=== PATIENT | female | born 1990 | race Caucasian/White ===

== ENCOUNTER 2019-08-28 04:34 | Emergency (ER) | payer BC, OTHER ==
[~2019-08-28] VITALS: Ht 152.4 cm; Wt 47.6 kg
[2019-08-28] MEDS ORDERED: ONDANSETRON PF 4 MG/2 ML VIAL. ONE (04:51)
[2019-08-28] MEDS ORDERED: FAMOTIDINE 20 MG/2 ML VIAL ONE (04:51)
[2019-08-28] MEDS ORDERED: KETOROLAC 15 MG/ML VIAL. ONE (04:51)
[2019-08-28] MEDS ORDERED: FAMOTIDINE 20 MG/2 ML VIAL IVP ONE (05:00)
[2019-08-28] MEDS ORDERED: IV NORMAL SALINE 1,000ML 1,000 ML IV ONE ×2 (05:00→05:30)
[2019-08-28] MEDS ORDERED: KETOROLAC 15 MG/ML VIAL. IVP ONE (05:00)
[2019-08-28] MEDS ORDERED: ONDANSETRON PF 4 MG/2 ML VIAL. IVP ONE (05:00)
[2019-08-28 05:13] LABS: BASO # 0.2 x10^3/uL (0.0-0.2); BASO % 1 % (0-3); EOS % 0 % (0-3); HEMATOCRIT 41.5 % (36.0-47.0); HEMOGLOBIN 14.1 g/dL (12.0-15.5); LYMPH # 2.8 x10^3/uL (1.0-4.8); LYMPH % 10 % (24-48); MEAN CORPUSCULAR HEMOGLOBIN 31 pg (25-35); MEAN CORPUSCULAR HGB CONC 34 g/dL (31-37); MEAN CORPUSCULAR VOLUME 92 fL (79-100); MONO # 0.8 x10^3/uL (0.0-1.1); MONO % 3 % (0-9); NEUT # 25.1 x10^3uL (1.8-7.7); NEUT % 87 % (31-73); PLATELET COUNT 279 x10^3/uL (140-400); RED BLOOD COUNT 4.51 x10^6/uL (3.50-5.40); RED CELL DISTRIBUTION WIDTH 12.7 % (11.5-14.5); WHITE BLOOD COUNT 28.9 x10^3/uL (4.0-11.0)
[2019-08-28 05:19] LABS: CREATININE 0.7 mg/dL (0.6-1.0); GFR 98.9; POTASSIUM 3.4 mmol/L (3.5-5.1)
[2019-08-28 05:25] LABS: ALBUMIN 4.2 g/dL (3.4-5.0); ALBUMIN/GLOBULIN RATIO 1.4 (1.0-1.7); MAGNESIUM 1.6 mg/dL (1.8-2.4); TOTAL BILIRUBIN 0.3 mg/dL (0.2-1.0); TOTAL PROTEIN 7.2 g/dL (6.4-8.2)
--- NOTE | 2019-08-28 05:29 | PHYS DOC ---
Past History Past Medical History: No Pertinent History (KEESHA LOCKETT DO) Past Surgical History: Tonsillectomy (KEESHA LOCKETT DO) Smoking: Cigarettes Alcohol Use: None Drug Use: Marijuana (KEESHA LOCKETT DO) Adult General Chief Complaint Chief Complaint: ABDOMINAL PAIN HPI HPI 29-year-old female presents with report of diffuse abdominal pain with associated nausea and vomiting that started at 0100 this morning. Patient reports pain as sharp in nature. Reports associated generalized malaise. Denies fever or chills. Denies known sick contacts. Denies . Patient reports last menstrual period was the third week of July. Denies history of abdominal surgery. (KEESHA LOCKETT DO) Review of Systems Review of Systems Constitutional: Denies fever or chills; reports generalized malaise Eyes: Denies redness or eye pain HENT: Denies nasal congestion or sore throat Respiratory: Denies cough or shortness of breath Cardiovascular: Denies chest pain or palpitations GI: Reports abdominal pain, nausea, and vomiting : Denies dysuria or hematuria Musculoskeletal: Denies back pain or joint pain Integument: Denies rash or skin lesions Neurologic: Denies headache, focal weakness or sensory changes Complete systems were reviewed and found to be within normal limits, except as documented in this note. (KEESHA LOCKETT DO) Current Medications Current Medications Current Medications Medications (Trade) Dose Ordered Sig/[place] Start Time Stop Time Status Last Admin Dose Admin Famotidine (Pepcid Vial) 20 mg STK-MED ONCE 08/28/19 04:51 08/28/19 04:51 DC Ketorolac Tromethamine (Toradol 15mg Vial) 15 mg STK-MED ONCE 08/28/19 04:51 08/28/19 04:51 DC Ondansetron HCl (Zofran) 4 mg STK-MED ONCE 08/28/19 04:51 08/28/19 04:51 DC Sodium Chloride 1,000 ml @ 1,000 mls/hr 1X ONCE 08/28/19 05:00 08/28/19 05:59 08/28/19 04:54 1,000 MLS/HR (KEESHA LOCKETT DO) Allergies Allergies Allergies Coded Allergies Type Severity Reaction Last Updated Verified No Known Drug Allergies 08/28/19 No (KEESHA LOCKETT DO) Physical Exam Physical Exam Constitutional: Well developed, well nourished, uncomfortable, non-toxic appearance HENT: Normocephalic, atraumatic, oropharynx dry Eyes: Conjunctiva normal, no discharge Neck: Normal range of motion, no tenderness, supple Cardiovascular: Heart rate normal, regular rhythm Lungs & Thorax: Bilateral breath sounds clear to auscultation, hyperventilating, no wheezing Abdomen: Soft, diffuse tenderness, no guarding/rebound tenderness/distention Skin: Warm, dry, no erythema, no rash Back: No tenderness, no CVA tenderness Extremities: No tenderness, ROM intact, no edema Neurologic: Alert and oriented X 3, no focal deficits noted Psychologic: Affect anxious, judgement normal (KEESHA LOCKETT DO) Current Patient Data Vital Signs Vital Signs Date Time Temp Pulse Resp B/P (MAP) Pulse Ox O2 Delivery O2 Flow Rate FiO2 08/28/19 04:37 97.7 66 28 99 Room Air Lab Results Laboratory Tests Test 08/28/19 04:45 White Blood Count 28.9 x10^3/uL (4.0-11.0) H Red Blood Count 4.51 x10^6/uL (3.50-5.40) Hemoglobin 14.1 g/dL (12.0-15.5) Hematocrit 41.5 % (36.0-47.0) Mean Corpuscular Volume 92 fL (79-100) Mean Corpuscular Hemoglobin 31 pg (25-35) Mean Corpuscular Hemoglobin Concent 34 g/dL (31-37) Red Cell Distribution Width 12.7 % (11.5-14.5) Platelet Count 279 x10^3/uL (140-400) Neutrophils (%) (Auto) 87 % (31-73) H Lymphocytes (%) (Auto) 10 % (24-48) L Monocytes (%) (Auto) 3 % (0-9) Eosinophils (%) (Auto) 0 % (0-3) Basophils (%) (Auto) 1 % (0-3) Neutrophils # (Auto) 25.1 x10^3uL (1.8-7.7) H Lymphocytes # (Auto) 2.8 x10^3/uL (1.0-4.8) Monocytes # (Auto) 0.8 x10^3/uL (0.0-1.1) Eosinophils # (Auto) 0.0 x10^3/uL (0.0-0.7) Basophils # (Auto) 0.2 x10^3/uL (0.0-0.2) Platelet Estimate Pending Sodium Level 141 mmol/L (136-145) Potassium Level 3.4 mmol/L (3.5-5.1) L Chloride Level 103 mmol/L (98-107) Carbon Dioxide Level 21 mmol/L (21-32) Anion Gap 17 (6-14) H Blood Urea Nitrogen 21 mg/dL (7-20) H Creatinine 0.7 mg/dL (0.6-1.0) Estimated GFR (Cockcroft-Gault) 98.9 BUN/Creatinine Ratio 30 (6-20) H Glucose Level 147 mg/dL (70-99) H Calcium Level 9.0 mg/dL (8.5-10.1) Magnesium Level Pending Total Bilirubin Pending Aspartate Amino Transferase (AST) Pending Alanine Aminotransferase (ALT) Pending Alkaline Phosphatase Pending Total Protein Pending Albumin Pending Albumin/Globulin Ratio Pending Lipase Pending (KEESHA LOCKETT DO) EKG EKG [] (KEESHA LOCKETT DO) Radiology/Procedures Radiology/Procedures [] (KEESHA LOCKETT DO) Course & Med Decision Making Course & Med Decision Making Pertinent Labs and Imaging studies reviewed. (See chart for details) Patient presents with report of diffuse abdominal pain with associated nausea and vomiting started early this morning. Abdomen non-peritoneal. Denies known sick contacts. Afebrile. Symptomatic treatment provided. IV fluid hydration given. Labs obtained and posted to chart. WBC significantly elevated. CT abdomen/pelvis pending. 0600- Sign out given to Dr. Garcia for further evaluation and final disposition. Discussed current findings and plan with patient, who acknowledges understanding and agreement. (KEESHA LOCKETT DO) Course & Med Decision Making Noted CT scan multiple nonspecific findings white count 28 I reevaluated the patient she is feeling better but there is some edema around the cecum there is some fluid adjacent to the gallbladder think she needs further workup. I spoke with Dr. Aranda at [facility] was amenable to consult over there. At this point in time plan will be to admit the patient to Dr. pitts waiting for a bus transfer at this time patient is aware of the risks and benefits of transfer he consents to that. Her blood pressure at this time was 100/60 98/59, she said she is feeling much better overall IV Zosyn was provided 2 L of fluid were pr ovided. Zosyn to cover Trichomonas as well. (ABIGAIL GARCIA MD) Dragon Disclaimer Dragon Disclaimer This electronic medical record was generated, in whole or in part, using a voice recognition dictation system. (KEESHA LOCKETT DO) Departure Departure: Impression: Primary Impression: Abdominal pain Additional Impression: Nausea & vomiting Disposition: 02 XFER SHT-TRM HOSP Condition: STABLE Referrals: PCP,NO (PCP) Problem Qualifiers Primary Impression: Abdominal pain Abdominal location: generalized Qualified Codes: R10.84 - Generalized abdominal pain Additional Impression: Nausea & vomiting Vomiting type: unspecified Vomiting Intractability: non-intractable Qualified Codes: R11.2 - Nausea with vomiting, unspecified KEESHA LOCKETT DO Aug 28, 2019 05:29 ABIGAIL GARCIA MD Aug 28, 2019 08:06
[2019-08-28 05:33] LABS: % BANDS 6 % (0-9); % LYMPHS 12 % (24-48); % MONOS 2 % (0-10); % SEGS 80 % (35-66); PLT ESTIMATE ADEQUATE (ADEQUATE)
[2019-08-28] MEDS ORDERED: MAGNESIUM SULFATE 2GM 50 ML IV ONE ×2 (05:48→06:00)
[2019-08-28 05:58] LABS: BARBITURATES NEG (NEG); BENZODIAZEPINES NEG (NEG); CANNABINOIDS POS (NEG); COCAINE NEG (NEG); METHADONE NEG (NEG); OPIATES NEG (NEG); PHENCYCLIDINE NEG (NEG)
[2019-08-28 05:59] LABS: BACTERIA,URINE FEW /HPF (0-FEW); BILIRUBIN,URINE NEG (NEG); CLARITY,URINE HAZY; COLOR,URINE YELLOW; GLUCOSE,URINE NEG (NEG); NITRITE,URINE NEG (NEG); RBC,URINE OCC /HPF (0-2); SQUAMOUS EPITHELIAL CELL,UR OCC /LPF; UROBILINOGEN,URINE 0.2 mg/dL (0.2 mg/dL)
[2019-08-28 06:00] LABS: AMPHETAMINE/METHAMPHETAMINE NEG (NEG); TRICHOMONAS,URINE PRESENT
[2019-08-28] MEDS ORDERED: IOHEXOL 300 MG/ML 75 ML VIAL. IV ONE (06:00)
[2019-08-28] MEDS ORDERED: CONTRAST GIVEN MC PRN (06:00)
--- NOTE | 2019-08-28 07:13 | RAD ---
CT abdomen and pelvis with contrast: Reason for examination: Abdominal pain with elevated white blood cell count. Helical images were obtained through the abdomen pelvis with intravenous administration of 75 cc Omnipaque 300. Reconstruction was performed in sagittal and coronal planes. Exposure: One or more of the following individualized dose reduction techniques were utilized for this examination: 1. Automated exposure control 2. Adjustment of the mA and/or kV according to patient size 3. Use of iterative reconstruction technique. The lung bases are clear. The heart size is normal with no pericardial effusion. No abnormality seen at the liver, spleen, adrenal glands, or pancreas. The gallbladder wall does not appear thickened and no choleliths are seen but there is some fluid between the liver and gallbladder. The kidneys show a hypodense lesion probably representing an angiomyolipoma in the lower pole of the left kidney measuring 1 cm in size. There is an additional 4 mm cystic-appearing lesion medially at the midpole the left kidney. No hydronephrosis or renal calculi are identified. The appendix is not specifically identified due to minimal intra-abdominal fat but there is an edematous appearance to the cecum suggesting inflammatory process. No abnormality seen at the bladder. No abnormality seen at the uterus. Ovaries appear to be enlarged at multiple cystic lesions measuring up to 2 cm in size in the right ovary which may reflect polycystic ovary disease. IMPRESSION: There is pericystic edema between the gallbladder and liver which may reflect hepatitis. Edematous appearance to the cecum/ascending colon which may reflect colitis. Enlarged cystic ovaries consistent with polycystic ovary disease. Angiomyolipoma at the lower pole the left kidney measuring approximately 1 cm in size. Electronically signed by: Raine Kenny MD (08/28/2019 7:10 AM) [facility]
[2019-08-28] MEDS ORDERED: PIPERACILLIN/TAZOBACTAM 3.375 GM VIAL IV ONE ×2 (07:42→08:42)
[2019-08-28] MEDS ORDERED: IV NORMAL SALINE 50ML 50 ML ONE ×2 (07:44→08:42)
[2019-08-28] MEDS ORDERED: PIPERACILLIN/TAZOBACTAM 3.375 GM in IV NORMAL SALINE 50ML 50 ML IV ONE (07:45)
[2019-08-28 08:30] VITALS: BP 104/66
== END 2019-08-28 08:50 | disposition short-term general hospital (02) ==
LOC: ER 04:34
DX: R10.84 Generalized abdominal pain (principal); R11.2 Nausea with vomiting, unspecified; R53.81 Other malaise; F17.210 Nicotine dependence, cigarettes, uncomplicated
CPT/HCPCS: 36415; 74177; 80053; 80307; 81001; 81025; 83605; 83690; 83735; 85007; 85025; 87040; 87086; 96361; 96365; 96366; 96368; 96375; 99285; J1885; J2405; J2543; J3475; J3490; Q9967; J7030